=== PATIENT | male | born 1990 | race Caucasian/White ===

== ENCOUNTER 2024-05-09 23:12 | Emergency (ER) | payer OTHER, SELFPAY ==
[2024-05-09 23:31] VITALS: BP 107/76
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
[2024-05-09] MEDS: TORADOL 30 MG IM (23:59)
[2024-05-10] MEDS: FLEXERIL 10 MG PO (00:01)
[2024-05-10 00:20] VITALS: BMI 23.8
[2024-05-10] MEDS: PERCOCET 5/325 2 TABLET PO (00:54)
[2024-05-10 00:55] VITALS: BP 110/72
== END 2024-05-10 00:55 | disposition home or self-care (01) ==
LOC: EMR 23:12
PROVIDERS: EMERGENCY PHYSICIAN Emergency Medicine; FAMILY PHYSICIAN Family Medicine
DX: M54.2 Cervicalgia (principal); M54.50 Low back pain, unspecified; M79.652 Pain in left thigh; V49.40XA Driver injured in collision with unspecified motor vehicles in traffic accident, initial encounter; Y92.410 Unspecified street and highway as the place of occurrence of the external cause; R03.0 Elevated blood-pressure reading, without diagnosis of hypertension; F17.200 Nicotine dependence, unspecified, uncomplicated; Z88.1 Allergy status to other antibiotic agents; Z88.0 Allergy status to penicillin
CPT/HCPCS: 99284; 96372

== ENCOUNTER 2024-06-03 02:09 | Emergency (ER) | payer OTHER, SELFPAY ==
[2024-06-03 02:11] VITALS: BP 126/87
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
[2024-06-03] MEDS: VALIUM 5 MG PO (03:32)
[2024-06-03 03:34] VITALS: BMI 27.4
[2024-06-03 03:36] VITALS: BP 109/72
[2024-06-03] MEDS: DILAUDID 1 MG IM (04:49)
== END 2024-06-03 05:45 | disposition home or self-care (01) ==
LOC: EMR 02:09
PROVIDERS: EMERGENCY PHYSICIAN Student in an Organized Health Care Education/Training Program
DX: M79.604 Pain in right leg (principal); W10.9XXA Fall (on) (from) unspecified stairs and steps, initial encounter; F17.200 Nicotine dependence, unspecified, uncomplicated
CPT/HCPCS: 99283; 72110

== ENCOUNTER 2025-04-27 20:10 | Observation (INO) | payer OTHER, SELFPAY ==
[2025-04-27] VITALS (9 sets, daily range): BP systolic 103–146; BP diastolic 69–92; BMI 27.1; BMI 26.3
[2025-04-27] MEDS: ZOFRAN 4 MG IV (16:13)
[2025-04-27] MEDS: TORADOL 15 MG IV ×3 (16:13→20:18)
[2025-04-27] MEDS: NSS 1000 IV ×2 (16:14→22:28)
[2025-04-27 16:33] LABS: Hematocrit 47.6 % (39.0-52.0); Hemoglobin 16.5 g/dL (13.0-18.0); Mean Corp Hgb Conc. 34.7 g/dL (33.0-37.0); Mean Corpuscular Volume 87.3 fL (80.0-94.0); Platelet Count 235 10^3/uL (130-400); Red Cell Dist. Width 12.1 % (11.5-14.5)
[2025-04-27 16:42] LABS: ALT (SGPT) 13 U/L (0-50); AST (SGOT) 16 U/L (17-59); Albumin 4.0 g/dl (3.5-5.0); Alkaline Phosphatase 45 U/L (38-126); Calcium 8.5 mg/dl (8.4-10.2); Carbon Dioxide 26 mmol/L (22-30); Chloride 108 mmol/L (98-107); Estimated Creatinine Clearance > 125 ml/min; Glucose 102 mg/dl (70-99); Potassium 3.3 mmol/L (3.5-5.1); Sodium 141 mmol/L (135-145); Total Protein 6.5 g/dl (6.3-8.2); eGFR > 60.00
[2025-04-27 16:53] LABS: Blood Urea Nitrogen 15 mg/dl (9-20)
[2025-04-27] MEDS: DILAUDID 0.5 MG IV ×3 (17:13→23:40)
[2025-04-27] MEDS: FLOMAX 0.4 MG PO ×2 (17:52→22:12)
[2025-04-27 18:01] LABS: Urine Character Clear (Clear)
[2025-04-27 18:11] LABS: Urine Squamous Cell 0-2 /LPF (Few)
[2025-04-27 18:12] LABS: Urine Red Blood Cell 26-30 /HPF (0-2)
--- NOTE | 2025-04-27 18:45 | ED.GENMED ---
History of Present Illness
<Mulugeta Shelby PA-C - Last Filed: 04/27/25 19:03>
General
Chief Complaint: Flank Pain
Time Seen by Provider: 04/27/25 15:57
History of Present Illness
History of Present Illness:
34-year-old male presents to evaluation of abrupt onset of right sided flank pain rating to the right pubic region. Associated with nausea no vomiting. No fevers. Does have sweats currently. No prior abdominal surgical history.
Past History
<Mulugeta Shelby PA-C - Last Filed: 04/27/25 19:03>
Past History
ED Past Medical History: None
ED Past Surgical History: None
Social History
Tobacco: Smoker
Alcohol: Occasional
Drug: None
Personal: Single
Living: with family
Employment: Employed
Review of Systems
<Mulugeta Shelby PA-C - Last Filed: 04/27/25 19:03>
Review of Systems
Allergies reviewed?: Yes
All Other Systems: ROS reviewed and negative except as documented in HPI and ROS
Phy Exam
<MARY Junior Last Filed: 04/27/25 19:03>
Physical Exam
Physical Exam:
GEN: Visibly uncomfortable, writhing in pain
HEENT: Oral mucosa moist, no scleral icterus
Cardiac: Regular rate
Lung: No respiratory distress, no tachypnea
Abdomen: Soft, grossly nontender
MSK: No gross deformity or injuries
Skin: Good color, no pallor or jaundice, no rashes
Neuro: AO x3, moves all extremities freely
Psych: Calm, cooperative
Course
<MARY Junior Last Filed: 04/27/25 19:03>
Orders/Labs/Results
Orders:
Orders
04/27/25 16:07
CT Abd/pel Without Iv Or Oral Urgent
Comment:
Reason For Exam: R flank pain
0.9% Sodium Chloride 1000 ml [Nss] 1,000 ml IV BOLUS
Ketorolac [Toradol] 15 mg IV NOW STA
Ondansetron Injectable [Zofran] 4 mg IV NOW STA
04/27/25 16:19
Complete Blood Count/No Diff Urgent
Comprehensive Metabolic Panel Urgent
Urinalysis Reflex To Culture Urgent
Date Specimen was Collected: 04/27/25
Time Specimen was Collected: 16:09
Urine Microscopic Reflex Cult Urgent
Urine Culture Urgent
SETH Source: U
Specimen Description:
Date Specimen was Collected: 04/27/25
Time Specimen was Collected: 16:09
04/27/25 17:10
HYDROmorphone [Dilaudid] 0.5 mg IV NOW STA
04/27/25 17:46
Ketorolac [Toradol] 15 mg IV NOW STA
Tamsulosin [Flomax] 0.4 mg PO NOW STA
04/27/25 18:40
HYDROmorphone [Dilaudid] 1 mg IV NOW STA
Abnormal Lab Results
04/27/25
16:19
MPV 10.8 H fL
(7.4-10.4)
Potassium 3.3 L mmol/L
(3.5-5.1)
Chloride 108 H mmol/L
(98-107)
Glucose 102 H mg/dl
(70-99)
AST 16 L U/L
(17-59)
Urine Ketones 1+ A
(Negative)
Ur Occult Blood Reflex 4+ A
(Negative)
Leukocyte Esterase Rfl 1+ A
(Negative)
Urine RBC 26-30 A /HPF
(0-2)
Urine Bacteria (Reflex) Many A
(Negative)
Urine Glucose 1+ A
(Negative)
Urine Albumin (Reflex) 4+ A
(Neg - Trace)
04/27/25 16:19
04/27/25 16:19
Vital Signs
Initial and Last Documented VS:
Initial Vital Signs
Pulse Resp Pulse Ox
63 18 100
04/27/25 15:40 04/27/25 15:40 04/27/25 15:40
Last Documented Vital Signs
Temp Pulse Resp BP Pulse Ox
37.0 C 49 16 146/92 98
04/27/25 18:50 04/27/25 18:50 04/27/25 18:50 04/27/25 18:50 04/27/25 18:50
<Wander Menjivar, DO - Last Filed: 04/27/25 19:06>
Orders/Labs/Results
Orders:
Orders
04/27/25 16:07
CT Abd/pel Without Iv Or Oral Urgent
Comment:
Reason For Exam: R flank pain
0.9% Sodium Chloride 1000 ml [Nss] 1,000 ml IV BOLUS
Ketorolac [Toradol] 15 mg IV NOW STA
Ondansetron Injectable [Zofran] 4 mg IV NOW STA
04/27/25 16:19
Complete Blood Count/No Diff Urgent
Comprehensive Metabolic Panel Urgent
Urinalysis Reflex To Culture Urgent
Date Specimen was Collected: 04/27/25
Time Specimen was Collected: 16:09
Urine Microscopic Reflex Cult Urgent
Urine Culture Urgent
SETH Source: U
Specimen Description:
Date Specimen was Collected: 04/27/25
Time Specimen was Collected: 16:09
04/27/25 17:10
HYDROmorphone [Dilaudid] 0.5 mg IV NOW STA
04/27/25 17:46
Ketorolac [Toradol] 15 mg IV NOW STA
Tamsulosin [Flomax] 0.4 mg PO NOW STA
04/27/25 18:40
HYDROmorphone [Dilaudid] 1 mg IV NOW STA
Abnormal Lab Results
04/27/25
16:19
MPV 10.8 H fL
(7.4-10.4)
Potassium 3.3 L mmol/L
(3.5-5.1)
Chloride 108 H mmol/L
(98-107)
Glucose 102 H mg/dl
(70-99)
AST 16 L U/L
(17-59)
Urine Ketones 1+ A
(Negative)
Ur Occult Blood Reflex 4+ A
(Negative)
Leukocyte Esterase Rfl 1+ A
(Negative)
Urine RBC 26-30 A /HPF
(0-2)
Urine Bacteria (Reflex) Many A
(Negative)
Urine Glucose 1+ A
(Negative)
Urine Albumin (Reflex) 4+ A
(Neg - Trace)
04/27/25 16:19
04/27/25 16:19
Vital Signs
Initial and Last Documented VS:
Initial Vital Signs
Pulse Resp Pulse Ox
63 18 100
04/27/25 15:40 04/27/25 15:40 04/27/25 15:40
Last Documented Vital Signs
Temp Pulse Resp BP Pulse Ox
37.0 C 49 16 146/92 98
04/27/25 18:50 04/27/25 18:50 04/27/25 18:50 04/27/25 18:50 04/27/25 18:50
<Mulugeta Shelby PA-C - Last Filed: 04/27/25 19:03>
MDM/Problems Addressed
MDM/Problems Addressed:
Imaging reveals a 4 mm distal right UVJ stone however despite numerous IV NSAIDs and IV opioids the patient had essentially no pain relief. Will be admitted to the urology service for pain control and potential intervention in the morning
<Mulugeta Shelby PA-C - Last Filed: 04/27/25 19:03>
*Pulse Oximetry
SaO2: 99
Oxygen Mode of Delivery: Room air
Patient hypoxic: no
*Critical Care Note
Total Time (30-74mins, 75-104mins- exclusive of procedures): Not Applicable
ED Attending Note
<Mulugeta Shelby PA-C - Last Filed: 04/27/25 19:03>
-
Portions of this chart may have been created with voice recognition software.� Occasional wrong word or��sound alike� substitutions may have occurred due to the inherent limitations of voice recognition software.
<Wander Menjivar DO - Last Filed: 04/27/25 19:06>
ED Attending Note
Patient seen and examined by attending physician: Yes
I performed the substantive portion of visit, reviewed & personally made and approve the management plan that is documented in note by myself or ANKIT.: Yes
ED Attending Note:
I evaluated the patient at bedside. Remains to appear somewhat uncomfortable despite multiple rounds of narcotic analgesia. Urology had been notified. Planning admission to the hospital for pain control and further management.
Discharge Plan
Departure
Patient Disposition: Admit
Date of Disposition: 04/27/25
Time of Disposition: 18:46
Admit to: Med/Surg
Presentation/result/management discussed w/ accepting /DO: UrologyhRea
Discharge Problem:
Ureterolithiasis
Prescriptions:
No Action
No Current Medications
0
Referrals:
Marvel Zeng MD [Family Provider, Family Practice]
Interventions
Interventions:
*Risk Screen - Suicide Last Done: 04/27/25 15:38
*General Assessment Last Done: 04/27/25 15:38
*Neglect/Abuse Screening Last Done: 04/27/25 16:31
*ED- Fall Risk Assessment Last Done: 04/27/25 16:31
*ED COVID-19 Vaccine History Last Done: 04/27/25 16:31
*ED Influenza Vaccine History Last Done: 04/27/25 16:31
PG-Rsldyw-Zdlrrwkuhk Assessment Last Done: 04/27/25 16:31
ED-Male Genitourinary Assessment Last Done: 04/27/25 16:31
Discharge Date and Time
Print Language: SLOVENIAN
[2025-04-27] MEDS: DILAUDID 1 MG IV (18:46)
[2025-04-27] MEDS: PERCOCET 5/325 1 TABLET PO (20:18)
--- NOTE | 2025-04-27 20:23 | PTCARENOTE ---
patient vomited following Percocet administration.
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
[2025-04-27] MEDS: KCL 40 MEQ PO (23:40)
[2025-04-28] MEDS: DILAUDID 0.5 MG IV ×3 (02:40→08:48)
[2025-04-28] MEDS: NSS 1000 IV (05:33)
[2025-04-28 07:00] VITALS: BP 127/76
[2025-04-28 08:24] LABS: Blood Urea Nitrogen 17 mg/dl (9-20); Calcium 9.4 mg/dl (8.4-10.2); Carbon Dioxide 25 mmol/L (22-30); Chloride 108 mmol/L (98-107); Estimated Creatinine Clearance 87 ml/min; Glucose 110 mg/dl (70-99); Potassium 4.1 mmol/L (3.5-5.1); Sodium 139 mmol/L (135-145); eGFR > 60.00
--- NOTE | 2025-04-28 10:00 | W.SUR.PREOP ---
Pre-Operative Surgical Note
-
I have examined this patient prior to the performance of the scheduled procedure.
The patient's condition is unchanged from the time of the current History and
Physical: he reports persistent, intractable pain.
He requests surgical removal of stone.
[2025-04-28] MEDS: TORADOL 30 MG IV (10:23)
--- NOTE | 2025-04-28 11:16 | PTCARENOTE ---
Patient hostile, irritable, angry, cursing at staff, slamming arms against bed rails. Stating we are not giving him any pain relief. This was his behavior overnight as well, according to hand off report.
Patient is receiving IV Dilaudid 0.5mg Q3 hours- see MAR. Pt asking to shower, ambulating in room, and using urinal. Of note, asked for pain medications while laying in bed, still, with eyes closed. Staff continues to strain urine.
RN reached out to urology counselor nurses' association provider for assistance. Will call code purple if behavior escalates. Urology placed a one time order for Toradol, which was administered.
--- NOTE | 2025-04-28 12:01 | CM ---
Reviewed the chart notes and spoke with the patient and the spouse at the bedside. The patient is admitted under observational status. The observation letter was provided and explained. The patient nor spouse had any questions with regards to the
letter.
The patient resides with his spouse in a two story home with no steps to enter. The patient reports no DME/VN/SNF in the past. The patient confirmed his [facility] of choice [facility]. continues to be available to patient/family
and is monitoring medical plan for needs at discharge.
Plan: Discharge to home when medically stable. No needs anticipated at this time.
--- NOTE | 2025-04-28 13:29 | W.IMMPOSTOP ---
Surgical Immed Post Op Note
-
Primary Surgeon: Berto
Pre-op Diagnosis: right ureteral stone
Post-op Diagnosis: same
Procedure Performed: right ureteroscopy, basket extraction of stone, ureteral stenting
Anesthesia Type: gen
Specimen / Cultures: stone
Estimated Blood Loss: 1 ml
Complications: no
Operative Findings: impacted distal right ureteral stone
4.7 Fr 22 cm right ureteral stent placed
pt to be discharged home after PACU recovery
[2025-04-28 13:33] VITALS: BP 108/51; BP 127/76
[2025-04-28 13:45] VITALS: BP 99/55
[2025-04-28 14:00] VITALS: BP 111/66
[2025-04-28 14:14] VITALS: BP 114/69
[2025-04-28 14:40] VITALS: BP 118/76
== END 2025-04-28 15:27 | disposition home or self-care (01) ==
LOC: 2 NORTH 20:10
PROVIDERS: Physician Assistant; Registered Nurse; Specialist; ADMITTING PHYSICIAN Specialist; EMERGENCY PHYSICIAN Emergency Medicine; FAMILY PHYSICIAN Family Medicine
DX: N20.2 Calculus of kidney with calculus of ureter (principal); R10.9 Unspecified abdominal pain; R11.0 Nausea; F17.200 Nicotine dependence, unspecified, uncomplicated; M54.9 Dorsalgia, unspecified; R61 Generalized hyperhidrosis; E87.6 Hypokalemia; Z82.49 Family history of ischemic heart disease and other diseases of the circulatory system; Z88.1 Allergy status to other antibiotic agents; Z88.0 Allergy status to penicillin
CPT/HCPCS: 52332; 52352; 74018; 74176; 76000; 80048; 80053; 81003; 81015; 82365; 85027; 87086; 96361; 96374; 96375; 96376; 99285; 99406; C1894; C2617; G0378